=== PATIENT | female | born 1960 ===

== ENCOUNTER 2018-03-18 09:51 | Day surgery (SDC) | payer BC ==
[~2018-03-18 09:51] MED LIST: Buffered Lidocaine 0.9% SYRIN* 5 ML/SYR SYRINGE INTRADERM ONE
[2018-03-18] MEDS ORDERED: ceFAZolin 2 GM PREMIX in ORs 2 GM/50 ML BAG IVPB ONE (10:02)
[2018-03-18] MEDS ORDERED: Midazolam* 1 MG/ML 2 ML VIAL (2 MG) ONE (11:29)
[2018-03-18] MEDS ORDERED: fentaNYL* 50 MCG/ML 2 ML VIAL (100 MCG VIAL) ONE (11:29)
[2018-03-18] MEDS ORDERED: Bupivacaine 0.25% SDV* 30 ML ONE (11:52)
[2018-03-18] MEDS ORDERED: ROPIVACAINE 5 MG/ML 30 ML BTL (0.5%) ONE (11:55)
[2018-03-18] MEDS ORDERED: Dexamethasone IV* 4 MG/ML 1 ML (4 MG) ONE (12:38)
[2018-03-18] MEDS ORDERED: Ondansetron INJ* 2 MG/ML VIAL ONE (12:38)
[2018-03-18] MEDS ORDERED: Propofol* 10 MG/ML 20 ML BTL IV PUSH ONE (12:38)
[2018-03-18] MEDS ORDERED: Lidocaine 2% PF * 5 ML VIAL ONE (12:38)
[2018-03-18] MEDS ORDERED: HYDROcodone/ACETAMIN 5-325 MG* 1 TAB ONE (13:52)
[2018-03-18] MEDS ORDERED: HYDROmorphone INJ1* 1 MG/ML SYRINGE IV PRN (14:03)
[2018-03-18] MEDS ORDERED: Naloxone* 0.4 MG/ML 1 ML VIAL IV PRN (14:03)
[2018-03-18] MEDS ORDERED: HYDROcodone/ACETAMIN 5-325 MG* 1 TAB PO PRN (14:03)
[2018-03-18] MEDS ORDERED: fentaNYL* 50 MCG/ML 2 ML VIAL (100 MCG VIAL) IV PRN (14:03)
[2018-03-18] MEDS ORDERED: PROCHLORPERAZINE INJ 5 MG/ML 2 ML VIAL IV PRN (14:03)
[2018-03-18] MEDS ORDERED: Metoclopramide IV* 5 MG/ML 2 ML VIAL IV PRN (14:03)
[2018-03-18] MEDS ORDERED: Ibuprofen TAB* 600 MG ONE (14:46)
[2018-03-18 15:23] VITALS: BP 151/70
--- NOTE | 2018-03-19 01:05 | OP ---
DATE OF OPERATION: 03/18/18 - [facility] DATE OF : 64 SURGEON: Tai Starks MD [employer] SET UP WORKER: JUDITH Gonzalez ANESTHESIOLOGIST: Dr. Meade. ANESTHESIA: Peripheral nerve block with general. PRE-OP DIAGNOSES: 1. Right wrist symptomatic retained hardware. 2. Flexor tendon adhesions, right finger flexors at the wrist. POST-OP DIAGNOSES: 1. Right wrist symptomatic retained hardware. 2. Flexor tendon adhesions, right flexor tendons (FPL and FDP) at the wrist. OPERATIVE PROCEDURE: 1. Flexor tendon tenolysis, right FDP and FPL tendons, right wrist. 2. Removal of distal radius plate and screws, right wrist. ESTIMATED BLOOD LOSS: 2 mL. COMPLICATIONS: None. INDICATIONS: Luz Maria is 57. She had the right distal radius fixed over a year by different doctor. When the screw is backing out, she has had quite a difficult time getting her fingers loosened back up. I had talked to her about going in and doing a tenolysis as her passive motion exceeded her active motion. Additionally, I thought we should take the distal radius plate out because some of the distal screws were backing out and clearly creating inflammation and problems. She understood the risks and benefits. She understands that she has to move the hand right away or she could get stiff and develop additional scar tissue. She would like to proceed. FINDINGS: See above and below. DESCRIPTION OF PROCEDURE: Luz Maria was seen in the preoperative holding area. The correct side, site, and procedure were identified. We came back to the operating room where the arm was prepped and draped in the usual fashion. A time-out was performed. The arm was exsanguinated with the Esmarch and the tourniquet inflated to 250 mmHg. I then made a longitudinal incision over the distal FCR tendon reopening her prior incision. This was brought back in line with the carpal tunnel and an incision was carried down over the proximal palm in line with a typical carpal tunnel incision. Dissection was carried down through the skin and subcutaneous tissue. The FCR tendon sheath was released and the scar tissue about the FCR tendon was released. The subsheath was released. I came distally and I released her carpal tunnel by releasing the transverse carpal ligament just off the radial aspect of the hook of the hamate. This allowed me better visualization and access to the finger flexors. The release was completed proximally and distally with tenotomy scissors. There was some synovitis about the tendons in the carpal tunnel, but overall not too bad. I went ahead and excised all the synovitis. As I came down in the interval between the FPL tendon and the radial artery, dense scar tissue was noted to be adherent to the FPL tendon. I went ahead and released this and performed a tenolysis until the FPL tendon was completely clean. That same scar tissue was also grabbing onto the more radial-sided FDP tendons. I went ahead and released all that, performed a full tenolysis, excising all of the scar tissue until nothing, but clean healthy tendons remained. I released the pronator quadratus off the radial margin of the plate and teed it back transversely at the distal aspect of the plate. All of the screws were visualized. The InboundWriter screwdriver was used to remove all of the distal and then all of the proximal screws. They all came out clean. The plate was removed. There was quite a bit of metallosis where the distal radial screw was out. That screw had been backing out. I went ahead and cleaned all that up with the rongeur until it was nice and clean. All of the rough bony edges were trimmed with a rongeur. At this point, everything was looking good, so I went ahead and reapproximated what was left of the pronator with 3-0 Vicryl suture. It actually closed up pretty well. I checked my tenolysis. All of the dense scar tissue that had been grabbing on to the FPL and FDP tendons had been excised and things were looking very good. We therefore went ahead and closed the skin with 4-0 Monocryl suture in the distal forearm and then the carpal tunnel portion was closed with 4-0 Vicryl suture. The wounds were dressed and 0.25% Marcaine was infiltrated all about the operative area. Soft dressings were then applied. The tourniquet was deflated and she was taken to the recovery room in stable condition. [id number]/[facility] #: [id number] MTDDonna
== END 2018-03-18 15:14 | disposition home or self-care (01) ==
LOC: OREAST 09:51
PROVIDERS: ATTEND Orthopaedic Surgery Hand Surgery
DX: T84.122A Displacement of internal fixation device of bone of right forearm, initial encounter (principal); S52.501S Unspecified fracture of the lower end of right radius, sequela; M25.641 Stiffness of right hand, not elsewhere classified; Y83.1 Surgical operation with implant of artificial internal device as the cause of abnormal reaction of the patient, or of later complication, without mention of misadventure at the time of the procedure; G89.18 Other acute postprocedural pain; Z87.891 Personal history of nicotine dependence; E78.5 Hyperlipidemia, unspecified; J45.909 Unspecified asthma, uncomplicated; F41.9 Anxiety disorder, unspecified; E66.9 Obesity, unspecified
CPT/HCPCS: 88300; A9270-GY; J0690; J1100; J2250; J2405; J2704; J2795; J3010

== ENCOUNTER 2019-03-31 08:30 | Emergency (ER) | payer BC ==
--- NOTE | 2019-03-31 10:09 | UC ---
Lower Extremity/Ankle HPI - HPI Summary HPI Summary: 58 yo female with left foot pain x 4 days twisted it and fell denies other injuries bruised and painful wt bearing - History of Current Complaint Chief Complaint: UCLowerExtremity Stated Complaint: L FOOT INJ Time Seen by Provider: 03/31/19 09:54 Hx Obtained From: Patient Onset/Duration: Sudden Onset, Lasting Days Severity Initially: Moderate Severity Currently: Moderate Pain Intensity: 5 Pain Scale Used: 0-10 Numeric Aggravating Factor(s): Standing, Ambulation Alleviating Factor(s): Rest Able to Bear Weight: Yes Feet (Multiple View): 1 - tender/swollen/ecchymosis - Allergies/Home Medications Allergies/Adverse Reactions: Allergies Allergy/AdvReac Type Severity Reaction Status Date / Time No Known Allergies Allergy Verified 03/31/19 09:11 Home Medications: Home Medications Ibuprofen TAB* [Advil TAB*] 600 mg PO Q6H PRN 03/31/19 [History Confirmed ] PMH/Surg Hx/FS Hx/Imm Hx Previously Healthy: Yes Endocrine History: Dyslipidemia Psychological History: Anxiety - Surgical History Surgical History: Yes Surgery Procedure, Year, and Place: 2017-RIGHT WRIST SURGERY-[facility]. LEFT GREAT TOE-CORRECTION OF JOINT. 2 C-SECTIONS. GALLBLADDER REMOVAL. MASSES REMOVED FROM EACH ARMPIT - Family History Known Family History: Positive: Hypertension, Non-Contributory - Social History Alcohol Use: Occasionally Alcohol Amount: 3-4 PER MONTH Substance Use Type: None Smoking Status (MU): Former Smoker Amount Used/How Often: 1/4 PPD X 8-10 YEARS Have You Smoked in the Last Year: No When Did the Patient Quit Smoking/Using Tobacco: 1992 Review of Systems All Other Systems Reviewed And Are Negative: Yes Constitutional: Positive: Negative Skin: Positive: Bruising Eyes: Positive: Negative ENT: Positive: Negative Respiratory: Positive: Negative Cardiovascular: Positive: Negative Gastrointestinal: Positive: Negative Genitourinary: Positive: Negative Motor: Positive: Negative Neurovascular: Positive: Negative Musculoskeletal: Positive: Other: - left fore foot pain Neurological: Positive: Negative Psychological: Positive: Negative Physical Exam Triage Information Reviewed: Yes Appearance: Well-Appearing, No Pain Distress, Well-Nourished Vital Signs: Initial Vital Signs Temp 98 F 03/31/19 09:13 Pulse 63 03/31/19 09:13 Resp 16 03/31/19 09:13 BP 195/89 03/31/19 09:13 Pulse Ox 97 03/31/19 09:13 Vital Signs Reviewed: Yes Eyes: Positive: Conjunctiva Clear ENT: Positive: Hearing grossly normal. Negative: Nasal congestion, Nasal drainage, Trismus, Muffled voice, Hoarse voice Neck: Positive: Supple, Nontender, No Lymphadenopathy Respiratory: Positive: Lungs clear, Normal breath sounds, No respiratory distress Cardiovascular: Positive: RRR, No Murmur Musculoskeletal: Positive: Other: - see image Neurological: Positive: Alert Psychological Exam: Normal Skin Exam: Normal Lower Extremity Course/Dx - Differential Dx/Diagnosis Provider Diagnosis: Nondisplaced fracture of fifth left metatarsal bone, Elevated BP without diagnosis of hypertension Discharge ED - Sign-Out/Discharge Documenting (check all that apply): Patient Departure All imaging exams completed and their final reports reviewed: Yes - Discharge Plan Condition: Stable Disposition: HOME Patient Education Materials: Foot Fracture in Adults (ED) Referrals: Russell Jeff MD [Medical Doctor] - As Soon As Possible Tanya Appiah MD [Primary Care Provider] - 2 Weeks (BP recheck) Additional Instructions: OBIE BUNCH see your MD in 2 weeks for BP recheck I suggest you see an orthopedist about your foot - Billing Disposition and Condition Condition: STABLE Disposition: Home
[2019-03-31 10:28] VITALS: BP 189/102
== END 2019-03-31 11:05 | disposition home or self-care (01) ==
LOC: UCCORT 08:30
DX: S92.355A Nondisplaced fracture of fifth metatarsal bone, left foot, initial encounter for closed fracture (principal); Z87.891 Personal history of nicotine dependence; X50.1XXA Overexertion from prolonged static or awkward postures, initial encounter; W19.XXXA Unspecified fall, initial encounter; Y92.9 Unspecified place or not applicable
CPT/HCPCS: 99212; G0463